=== PATIENT | female | born 1965 | race Caucasian/White ===

== ENCOUNTER → 2019-06-07 13:45 | Outpatient (BNVA) | payer OTHER, MEDICAID, SELFPAY | PROVIDERS: PCP Registered Nurse; Referring Provider Licensed Practical Nurse; Visit Provider Psychiatry & Neurology Neurology | DX: M54.9 Dorsalgia, unspecified (principal); M79.604 Pain in right leg; M79.605 Pain in left leg | CPT/HCPCS: 95886; 95909 ==

== ENCOUNTER 2021-09-25 14:02 | Outpatient (CLI) | payer OTHER, MEDICAID, SELFPAY ==
--- NOTE | 2021-09-25 14:28 | MM_ITS ---
WS: [id number] BILATERAL 3D TOMOSYNTHESIS DIGITAL SCREENING MAMMOGRAPHY WITH CAD CLINICAL INFORMATION: SCREENING. RIGHT breast soreness. COMPARISON: 018 TECHNIQUE: Bilateral CC and MLO views. FINDINGS: Scattered fibroglandular densities bilaterally. A few incidental punctate calcifications. No suspicio us focal mass, asymmetry, calcifications, or architectural distortion. No evidence of malignancy. MM/[place] [id number] IMPRESSION: BI-RADS: 2-Benign FOLLOW UP: 1 Year Follow-up Recommend return to annual screening mammography.
== END 2021-09-25 14:03 | disposition home or self-care (01) ==
PROVIDERS: PCP Registered Nurse; Visit Provider Family Medicine
DX: Z12.31 Encounter for screening mammogram for malignant neoplasm of breast (principal)
CPT/HCPCS: 77063; 77067

== ENCOUNTER 2024-02-05 10:48 | Outpatient (CLI) | payer OTHER, MEDICAID, SELFPAY ==
--- NOTE | 2024-02-05 10:54 | US_ITS ---
WS: [id number] BILATERAL 3D TOMOSYNTHESIS DIGITAL DIAGNOSTIC MAMMOGRAPHY WITH CAD CLINICAL INFORMATION: RIGHT BREAST PAIN HISTORY: RIGHT breast lump COMPARISON: 2021 TECHNIQUE: Bilateral CC, MLO, and ML views. FINDINGS: Scattered fibroglandular densities bilaterally. Few incidental punctate calcifications. Palpable yuli er RIGHT breast with normal underlying parenchymal tissue. Ultrasound of this area is pending. LEFT breast appears unchanged compared to previous ULTRASOUND BREAST RIGHT TECHNIQUE: Ultrasound right breast focused area of concern. CLINICAL INFORMATION: RIGHT BREAST PAIN FINDINGS: Ultrasound RIGHT breast area of palpable concern. Ultrasound at the 9 o'clock position demonstrates i ncidental tiny cysts measuring 3 to 4 mm, 5 cm from the nipple. Additional lobulated cyst at the 9 o 'clock position measuring 6 x 5 mm. Findings have a benign appearance. Recommend return to annual [facility] mammography. US/US breast RT complete [id number] IMPRESSION: DENSITY: There are scattered areas of fibroglandular density. BI-RADS: 2 - Benign. FOLLOW UP: 1 Year Follow-up Recommend return to annual screening mammography.
== END 2024-02-05 10:49 | disposition home or self-care (01) ==
LOC: RAD 10:49
PROVIDERS: PCP Family Medicine; Visit Provider Nurse Practitioner Family
DX: N64.4 Mastodynia (principal); R92.323 Mammographic fibroglandular density, bilateral breasts; R92.1 Mammographic calcification found on diagnostic imaging of breast
CPT/HCPCS: 76641; 77062; G0279

== ENCOUNTER → 2024-06-03 12:36 | Outpatient (BNVA) | payer OTHER, MEDICAID, SELFPAY | PROVIDERS: PCP Family Medicine; Visit Provider Orthopaedic Surgery | DX: M43.17 Spondylolisthesis, lumbosacral region (principal); M96.1 Postlaminectomy syndrome, not elsewhere classified; M54.9 Dorsalgia, unspecified; Z98.1 Arthrodesis status | CPT/HCPCS: 72072; 72110; 99204 ==

== ENCOUNTER 2024-08-19 08:00 | Outpatient (CLI) | payer OTHER, MEDICAID, SELFPAY ==
--- NOTE | 2024-08-19 08:45 | MR_ITS ---
WS: [id number] MRI LUMBAR SPINE NONCONTRAST TECHNIQUE: Sagittal T1, T2 and STIR imaging. Axial T1 and T2 imaging. CLINICAL INFORMATION: lumbar pain COMPARISON: MRI 2019 FINDINGS: Mild lumbar curve. No acute compression. Pedicle screw fixation L5-S1. Slight anterolisthesis L5 on S1 with interbody fusion. Laminectomy defects L4-L5 and L5-S1. 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 L1-L2: Mild annular bulging. Narrowing of the subarticular recess bilaterally. Mild facet arthropathy. Foramen are patent. L2-L3: Annular bulging with narrowing of the RIGHT greater than LEFT subarticular recess. Mild facet arthropathy. Mild LEFT L2-3 foraminal narrowing. L3-L4: Annular bulging L3-4 with mild central canal stenosis progressed compared to previous. Moderate facet arthropathy. Foramen are patent. L4-L5: Laminectomy defects. Annular bulging with impingement on the subarticular recess bilaterally. Mild LEFT greater than RIGHT foraminal narrowing. L5-S1: Pedicle screw fixation with interbody fusion. Grade 1 anterolisthesis. Slight encroachment on the RIGHT greater than LEFT traversing S1 nerve roots. Mild foraminal narrowing. Visualized pelvic bony structures: Normal. Paravertebral soft tissues: Normal. MR/MR lumbar spine wo con* [id number] IMPRESSION: 1. Prior postoperative changes pedicle screw fixation L5-S1 with interbody fus ion. Grade 1 anterolisthesis L5 on S1 appears minimally progressed. 2. 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 3. Mild narrowing of the thecal sac at L3-4 with mild annular bulging and narr owing of the subarticular recess progressed compared to previous. 4. Impingement on the L4-5 subarticular recess. 5. Annular bulging L2-3 with narrowing of the subarticular recess bilaterally. This appears progressed compared to previous. 6. Moderate facet arthropathy L3-L4 L4-L5.
--- NOTE | 2024-08-19 09:30 | MR_ITS ---
WS: [id number] MRI THORACIC SPINE WITHOUT CONTRAST TECHNIQUE: Sagittal T1, T2 and STIR imaging. Axial T2 imaging. Noncontrast imaging obtained. CLINICAL INFORMATION: thoracici pain COMPARISON: 2019 FINDINGS: Mild thoracic curve. Mild thoracic kyphosis. Mild disc bulging T6-T7 and T7-T8 with slight effacement of the ventral thecal sac. Small central protrusions with slight contact of the thoracic cord similar to previous. Tiny shallow central protrusion T9-T10. This is also similar to previous. No high-grade central canal narrowing. Normal CSF pulsation artifact in the dorsal canal. No acute compression fractures. No high-grade central canal stenosis. Moderate facet arthropathy lower thoracic spine. A few Schmorl's nodes in the lower thoracic and upper lumbar spine. Adrenal glands are normal. Small esophageal hiatal hernia. MR/MR thoracic spin wo con* [id number] IMPRESSION: 1. Mild thoracic curve. Mild thoracic kyphosis. No acute compression fractures . 2. No high-grade central canal narrowing. Cord signal is normal. 3. Small disc protrusions T6-T7 and T7-T8 with slight contact of the thoracic cord similar to 2019. 4. Tiny shallow protrusion at T9-10 also similar to previous.
== END 2024-08-19 08:01 | disposition home or self-care (01) ==
PROVIDERS: PCP Family Medicine; Visit Provider Orthopaedic Surgery
DX: M43.17 Spondylolisthesis, lumbosacral region (principal); M79.604 Pain in right leg; M79.605 Pain in left leg; M43.8X4 Other specified deforming dorsopathies, thoracic region; M51.24 Other intervertebral disc displacement, thoracic region; M51.34 Other intervertebral disc degeneration, thoracic region; M47.894 Other spondylosis, thoracic region; M51.44 Schmorl's nodes, thoracic region; M51.46 Schmorl's nodes, lumbar region; K44.9 Diaphragmatic hernia without obstruction or gangrene; Z98.1 Arthrodesis status; R93.7 Abnormal findings on diagnostic imaging of other parts of musculoskeletal system; G03.9 Meningitis, unspecified; M51.369 Other intervertebral disc degeneration, lumbar region without mention of lumbar back pain or lower extremity pain; M47.896 Other spondylosis, lumbar region; M43.8X6 Other specified deforming dorsopathies, lumbar region; M96.89 Other intraoperative and postprocedural complications and disorders of the musculoskeletal system; M48.07 Spinal stenosis, lumbosacral region
CPT/HCPCS: 72146; 72148

== ENCOUNTER → 2024-08-24 14:20 | Outpatient (BNVA) | payer OTHER, MEDICAID, SELFPAY | PROVIDERS: PCP Family Medicine; Visit Provider Orthopaedic Surgery | DX: Z09 Encounter for follow-up examination after completed treatment for conditions other than malignant neoplasm (principal) | CPT/HCPCS: 99214 ==

== ENCOUNTER 2024-08-26 08:50 | Outpatient (CLI) | payer OTHER, MEDICAID, SELFPAY ==
[2024-08-26 09:41] LABS: Basophils # 0.2 10^3/uL (0.0-0.1); Basophils % 1.6 %; Eosinophils # 0.3 10^3/uL (0.0-0.8); Eosinophils % 2.3 %; Hematocrit 49.7 % (36-47); Lymphocytes # 4.2 10^3/uL (0.8-4.8); Lymphocytes % 37.4 %; Mean Corpuscular HGB Conc 32.8 g/dL (30-55); Mean Corpuscular Hemoglobin 29.4 pg (27-33); Mean Corpuscular Volume 89.5 fl (85-98); Mean Platelet Volume 10.4 fL (7.4-10.4); Monocytes % 9.2 %; Neutrophils # 5.46 10^3/uL (1.8-7.7); Neutrophils % 49.1 %; Nucleated Red Blood Cells % 0 %; Platelet Count 251 10^3/cmm (157-399); Red Blood Count 5.55 10^6/uL (3.85-5.65); Red Cell Distribution Width 14.6 % (12.1-15.1); White Blood Count 11.11 10^3/uL (3.29-11.43)
[2024-08-26 09:51] LABS: Bilirubin Urine Negative (Negative); Blood Urine Negative (Negative); Glucose Urine UA Negative (Normal); Ketones Urine Negative (Negative); Leukocyte Esterase Urine Negative (Negative); Nitrate Urine Negative (Negative); Protein Urine Negative (Negative); Specific Gravity, Urine 1.025 (1.005-1.030); Urine Appearance Clear (CLEAR); Urine Color Yellow (Yellow); pH Urine 6.5 (5-7)
[2024-08-26 09:56] LABS: Add Urine Microscopic? YES; Bacteria Urine 1+ /hpf; Hyaline Casts Urine 0-4 /lpf; RBC Urine 0-2 /hpf (0-2); WBC Urine 0-5 /hpf (0-5)
[2024-08-26 10:01] LABS: Alanine Aminotransferase 22 U/L (0-33); Albumin Level 3.7 g/dL (3.5-5.2); Alkaline Phosphatase 118 U/L (35-105); Anion Gap 13.6 (5-19); Aspartate Amino Transferase 20 U/L (0-32); Blood Urea Nitrogen 13 mg/dL (6-20); Calcium 8.9 mg/dL (8.5-10.5); Carbon Dioxide 28 mmol/L (22-29); Chloride 105 mmol/L (98-107); Globulin 2.9 g/dL (1.3-4.6); Glomerular Filtration Rate 73.7 mL/min (90-130); Glucose 122 mg/dL (65-115); Osmolality Calculated 295 mOsm/kg (285-295); Potassium 4.6 mmol/L (3.5-5.1); Sodium 142 mmol/L (136-145); Total Bilirubin 0.2 mg/dL (0.15-1.2); Total Protein 6.6 g/dL (6.6-8.7)
[2024-08-26 10:06] LABS: Add Urine Culture? No
== END 2024-08-26 08:51 | disposition home or self-care (01) ==
LOC: LAB 08:53
PROVIDERS: PCP Family Medicine; Visit Provider Orthopaedic Surgery
DX: M54.9 Dorsalgia, unspecified (principal)
CPT/HCPCS: 36415; 80053; 81001; 85025

== ENCOUNTER 2024-09-15 13:02 | Inpatient (IN) | payer OTHER, MEDICAID, SELFPAY ==
[2024-09-15] VITALS (22 sets, daily range): BP systolic 79–146; BP diastolic 52–92; PULSE 68–90; RESP 10–21; TEMP 36.5–37.1; O2SAT 90–98; BMI 42.0; BMI 44.4
--- NOTE | 2024-09-15 | XR_ITS ---
WS: [email or web address] Lumbar spine, C-arm fluoroscopy views, 09/15/2024 Clinical Data: OR PICS Comparison: Lumbar spine, 06/03/2024 Findings: Dr. Dempsey performed a revision of the posterior lumbar fusion. XR/XR lumbar spine 2-3V* [id number] Impression: Revision of posterior lumbar fusion.
[2024-09-15] MEDS: sodium chloride 0.9% 1,000 ML 30 ML IV (07:28)
--- NOTE | 2024-09-15 08:21 | W.PM.OPSUD ---
Surgery/Procedure H&P Update DATE OF PROCEDURE: September 15, 2024 DATE H&P PERFORMED: 08/24/24 H&P UPDATE INFORMATION: I have reviewed H&P completed within last 30 days, I have examined patient prior to procedure and No changes to prior documentation PREOP DIAGNOSIS: Lumbar stenosis neurogenic claudication PLANNED PROCEDURE: Operation Date: 09/15/24 09:00 Proposed Procedures p Posterior Lumbar Interbody Fusion PLIF(Not Applicable) - DO teresa Osei Lumbopelvic Fixation(Not Applicable) - DO teresa Osei Sacroiliac Joint Fusion SI Joint Fusion(Bilateral) - Rajat Dempsey DO
[2024-09-15] MEDS: ceFAZolin 2,000 mg SDV 2000 MG IVP ×2 (09:16→17:12)
[2024-09-15] MEDS: lidocaine-epi 1% 20 mL INJ INJECTION (10:08)
[2024-09-15] MEDS: heparin, porcine 1,000 unit/mL INJ 10 mL 10000 UNIT IRRIGATION (10:09)
[2024-09-15] MEDS: vancomycin 1,000 MG SDV 1000 MG XX (10:09)
[2024-09-15] MEDS: VANCOMYCIN ADD-Vantage 1,000 MG VIAL 1000 MG XX (11:37)
--- NOTE | 2024-09-15 12:24 | P.OP_ITS ---
Operative Report Date of procedure: September 15, 2024 Pre-op diagnosis: Lumbar stenosis with neurogenic claudication Post-op diagnosis: same Procedure done: 1. L4/5 Interbody fusion with posterolateral fusion 2. Instrumentation L4-S1 3. Cage at L4/5 4. L4-5 laminectomy with facetectomy for purposes decompress the nerve 5. use of autograft from same incision 6. allograft 7. Bone marrow aspirate from right iliac crest 8. Use of computer navigation CT apical spine 9. Review of deep hardware from spine Surgeon: Rajat Dempsey DO Estimated blood loss (mL): 400 Procedure: 1. L4/5 Interbody fusion with posterolateral fusion 2. Instrumentation L4-S1 3. Cage at L4/5 4. L4-5 laminectomy with facetectomy for purposes decompress the nerve 5. use of autograft from same incision 6. allograft 7. Bone marrow aspirate from right iliac crest 8. Use of computer navigation CT apical spine 9. Review of deep hardware from spine Patient is brought to the operative suite. After undergoing anesthesia, the patient had neuro monitoring attached. Patient was then placed in the prone position on the Naseem table. All areas of impingement were well-padded. Patient was then prepped and draped in the normal sterile fashion. Skin incision was then made over the L L4-S1. Subperiosteal dissection was made out to the transverse processes of L4 and S1. Previous screws were identified. These caps were removed and rods removed his screws remained in place. The Foxtrot bone marrow aspirate kit was used to aspirate bone marrow aspirate. This was done by using the sharp probe to open up the bone right iliac crest. Aspiration was performed and then the blunt probe was then used to dissect down to through the bone tunnel. An aspirating well drawn back a millimeter approximately 20 cc of bone marrow aspirate was used. Admixed with the allograft and autograft bone that will be used. The extension was brought to placing the fiducial 2 pins were placed in the right iliac crest. Fiducial was attached C-arm was brought in spiral patient information from the C-arm was alone in the computer. This was later used for placing the pedicle screws. The technique for placing the pedicle screws was to use a drill followed by the gearshift probe linked to computer navigation. Followed by the ball probe to feel the superior inferior medial lateral olson of the pedicles. Then placement of the screws linked to computer navigation. Was done at each pedicle. Screws were placed at L 4 bilaterally. Next attention was brought to performing the laminectomy ofL4. This was done using the high-speed bur Kerrisons and curettes. Once the lamina was removed and then attention was brought to performing a partial facetectomy on the contralateral side. This was done again using the high-speed bur curettes and Kerrisons. The ligamentum flavum was taken down bilaterally from L4 to L5. Attention was then brought to the facet on the ipsilateral side. The facet was taken down. The L5 nerve was decompressed as it passed around the L5 pedicle. The laminectomy was done for purposes of decompressing the nerve as well as placement of the cage. The L4 nerve was identified as it traversed through the L4 foramen. The thecal sac was identified and retracted. The L4/5 disc base was identified. Using a knife the disc base was opened. And then sequential sony were placed. The first shaver was a 6 and the last shaver was a 11. Using a pituitary and down going curette the endplates were scraped and disc material was removed from the space. Once adequate decompression of the disc base was felt to be had. Osteoamp sponge was packed into the anterior aspect of the disc base. Then a size 12 cage from [place] was placed after packing osteoamp into the cage. While placing the cage the thecal sac and L5 nerve was protected. C arm was used to ensure that the cages placed in the appropriate position. Attention was then brought to attaching the rods to the screws placed in the L4 bilaterally L5 bilaterally and S1 bilaterally. Caps were torqued into position. Locking the construct in place. Wound was copiously irrigated and then attention was brought to decorticating the facets and transverse processes laterally. Bone that was taken down from the lamina was used along with osteoamp fibers and sponges were packed into the lateral gutters along the facet joints. This was done bilaterally. Wound was then closed in a layered fashion starting with the thoracolumbar fascia. 0-vicryl was used the sub cutaneous tissue was closed with 2-0 vicryl and skin with 4-0 monocryl. Glue was then used to seal the skin and a steril dressing was applied. Patient was then placed in the supine position. The endotracheal tube was removed and patient was transferred to the PACU in stable condition.
--- NOTE | 2024-09-15 13:10 | ANE.PACU2 ---
Inpatient post-anesthesia follow up: Airway intact: Yes Vital signs: Temperature 97.7 F Pulse Rate 71 Respiratory Rate 19 Blood Pressure 128/70 Pulse Oximetry 92 Oxygen Delivery Me thod Room Air Oxygen Flow Rate 8 Fraction of Inspir ed Oxygen Hydration adequate: Yes Nausea and vomiting: No Pain level: 1 Mental status: Baseline
--- NOTE | 2024-09-15 13:27 | PC.NURSE ---
1315 - accepted into room 257 with LUDIVINA Quigley at side - pt in no distress upon this nurse exiting care - BP 128/70 - pulse 71 - 02 92% Temp 97.7
[2024-09-15] MEDS: lactated ringers 1,000 ML 90 ML IV (14:06)
[2024-09-15] MEDS: BuSPIRONE 10 mg Tablet 5 MG PO ×2 (14:12→21:55)
[2024-09-15] MEDS: ketorolac 30 mg/mL INJ IVP ×2 (14:12→21:56)
[2024-09-15] MEDS: HYDROcodone-acetaminophen 10-325 mg Tablet PO ×2 (17:11→21:55)
[2024-09-15] MEDS: docusate sodium 100 mg Capsule PO (17:11)
[2024-09-15] MEDS: pantoprazole DR 40 mg Tablet PO (17:11)
[2024-09-15] MEDS: albuterol 2.5 mg/3 mL Neb INHALATION (20:37)
[2024-09-15] MEDS: budesonide 0.5 mg/2 mL Neb 0.25 MG INHALATION (20:37)
[2024-09-16] VITALS: BP 137/71; PULSE 86; RESP 18; TEMP 36.9; O2SAT 92
[2024-09-16] MEDS: ceFAZolin 2,000 mg SDV 2000 MG IVP ×2 (01:44→09:13)
[2024-09-16] MEDS: HYDROcodone-acetaminophen 10-325 mg Tablet PO (05:44)
[2024-09-16 07:47] VITALS: BP 146/82; PULSE 76; RESP 16; TEMP 36.4; O2SAT 91
[2024-09-16] MEDS: budesonide 0.5 mg/2 mL Neb 0.25 MG INHALATION (07:51)
[2024-09-16] MEDS: albuterol 2.5 mg/3 mL Neb INHALATION (07:51)
[2024-09-16 07:53] VITALS: PULSE 80; RESP 18; O2SAT 96
--- NOTE | 2024-09-16 09:04 | PC.SOCIAL ---
DME Patient has walker order. Choice sheet completed and placed in chart. Cyber access completed. Confirmation # [id number]. All information faxed to HOME @ this time and requested via webex that walker be delivered.
[2024-09-16] MEDS: docusate sodium 100 mg Capsule PO (09:12)
[2024-09-16] MEDS: BuSPIRONE 10 mg Tablet 5 MG PO (09:12)
[2024-09-16] MEDS: duloxetine 60 mg Capsule PO (09:12)
[2024-09-16] MEDS: pantoprazole DR 40 mg Tablet PO (09:12)
--- NOTE | 2024-09-16 09:48 | P.DS_ITS ---
Discharge Providers Date of Admission: 09/16/24 01:13 Date of Discharge: September 16, 2024 Attending Provider at Admission: Rajat Dempsey DO Attending Provider at Discharge: Rajat Dempsey DO Primary Care Provider: Maxine Robison DO Reason for Visit Reason for Visit: M34.17 Physical Exam Narrative: Patient is doing well up with physical therapy pain is controlled. Will discharge today. Urinary Catheter Management: Rollins: Cath Placed During This Visit: yes Reason for Continuing Indwelling Catheter: Perioperative Use in Selected Surgeries Urinary Catheter Date of Insertion: 09/15/24 Urinary Catheter Time of Insertion: 09:30 Discharge Data Studies Completed and Pending Pending at discharge Category Date Time Status C-arm Fluoroscopy [id number] Routine Exams 09/15/24 06:53 Taken Laboratory Results Blood Type A Positive 09/15/24 07:20 Rho(D) Type Rh positive 09/15/24 07:20 Antibody Screen Negative 09/15/24 07:20 Vitals Last Vital Signs Temp 97.5 F L 09/16/24 07:47 Pulse 80 09/16/24 07:53 Resp 18 09/16/24 07:53 BP 146/82 09/16/24 07:47 Pulse Ox 96 09/16/24 07:53 O2 Del Method Room Air 09/16/24 07:53 O2 Flow Rate 2 09/15/24 20:37 Discharge Plan Discharge Patient Disposition: Home Condition: Stable Prescriptions: New hydrocodone-acetaminophen 10-325 mg tablet 1 tab PO Q4H PRN (Reason: pain) 7 Days Qty: 42 0RF Continued albuterol sulfate [ProAir HFA] 90 mcg/actuation HFA aerosol inhaler 2 puff INHALATION Q6H PRN (Reason: Allergy Symptoms) buspirone 5 mg tablet 5 mg PO TID albuterol sulfate 2.5 mg /3 mL (0.083 %) solution for nebulization 2.5 mg inhalation Q4H pantoprazole 40 mg tablet,delayed release (DR/EC) 40 mg PO BID budesonide 0.5 mg/2 mL suspension for nebulization 0.25 mg inhalation BID duloxetine 60 mg capsule,delayed release(DR/EC) 60 mg PO DAILY Discontinued hydrocodone-acetaminophen [[place]] 10-325 mg tablet 1 tab PO Q8H Discharge Orders: Discharge Order (Routine); Ordered 09/16/24 Ordered By: Rajat Dempsey Other Ambulatory Orders: DME: Walker (Order) Location: None Selected Ordered By: Rajat Dempsey Discharge Diet: Advance as tolerated Discharge Activity: Limit activity as instructed Patient Instructions: Acute Wound Care (DC), Opioid Safety, Post Anesthesia Care Activity Restrictions/Additional Instructions: Thank you for [facility] for your care! The following is a list of instructions, from your provider, to follow upon your discharge to ensure you have the optimal recovery from your recent injury orsurgery. Follow-up care is a khan part of your treatment and safety. Be sure to make and go to all appointments, and call your doctor if you are having problems. If you do not already have a follow-up appointment made, call Dr. Dempsey office in the next 1-3 days to make follow up appointment for 1 weeks at [phone]. It is also a good idea to know your test results and keep a list of the medicines you take. Medications will be prescribed for you at your provider's discretion. These medications are to be used as instructed; if they are taken more often that prescribed they will not be refilled early and in most cases will not be refilled at all. > When a refill is needed,you should contact navid tello 2-3 business days before your prescription runs out. Medications will NOT be refilled by protection specialist providers after hours! > Many pain medications contain Tylenol (Acetaminophen). Do not consume more than 4,000 mg of Tylenol per day in total with any combination ofmedica tions. > Pain medications can cause constipation. Please use an over the counter stool softener as directed, while taking pain medications. Consulty our local pharmacist with questions or recommendations on stool softeners. If constipation persists, contact our office or your primary care provider. > While under our care,you are not to receive pain medications or other controlled substances from any other provider unless our office is notified and approves. Any attempts to do so will result in refusal to prescribe any further pain medications and possible dismissal from our practice. ? ? Walking is essential for the healing process after surgery. We would like you to slowly advance your walking. This should be done on relatively flat clear ground (inside or out) or can be done on a treadmill. Remember this goal does not have to happen all at once, slowly increase your distance and duration. This can be broken into more more than one walk per day a s tolerated. Patients who walk as directed after surgery rarely require Physical Therapy. In the unlikely event this issue arises your provider will direct hospital staff to make the appropriate arrangements. ? No lifting over 5 pounds {a gallon of milk) or bending/twisting until further notice. Each of these activities places an unnecessary amount of stress onto the body and can impede the delicate healing process. > Instead of bending at the waist, keep your back straight and bend at the knees. > Instead of twisting your torso, keep your back straight and turn your entire body with your feet. ? You may sleep in any position which makes you comfortable. Many patients find comfort sleeping in a reclining chair. It is not abnormal to have difficulty sleeping for the first several weeks following your surgery. We recommend trying Benadry! or Tylenol PM as directed to help with your sleeping difficulties. Both medications are over the counter and available wit houtprescription. ? NO SMOKING!!! Smoking dramatically increases the probability of developing postoperative wound infections. ? Common complaints after lumbar and/or thoracic spine surgery include, but are not limited to: numbness and/or tingling in the legs, pain around the incision and surrounding tissues, muscle spasms, or stiffness of the middle to low back. Contact our office if these symptoms persist or if an acute change occurs. ? No driving for the first 3-5days, and not while taking narcotics [] until seen at your follow-up appointment and cleared. There are no restrictions for riding on short trips, however if you take a longer trip, arrangements should be made to make regular stops to get out of the vehicle and stretch . ? Swelling is an unfortunate event that will take place with any surgery and is the primary source of your postoperative discomfort. While walking and regular approved activities helps control inflammation, there are additional steps you can take to minimizeswelling. > Place ice over the surgical site and surrounding tissue for twenty minutes, followed by applying a low/medium heat (heating pad) for an additional twenty minutes every 1-2 hours as needed for painrelief. > You may use of over the counter anti-inflammatory medications (Ibuprofen, Motrin, Aleve, Advil, etc) as directed on the package label. These types of medicines wm significantly reduce the amount of discomfort you experience after surgery from swelling. It should be noted that if you have and allergy to any of these medications, or a history of ulcers or kidney disease you should consult you primary care provider prior to starting these medications. Discharge Attestations Time Spent in Discharge Care*: less than 30 min Quality Metrics Clinical Quality Measures [ No reported AMI, CVA or VTE this stay] Coding Level of Care Code Acute Code for g Raimundo
--- NOTE | 2024-09-16 10:15 | PC.NURSE ---
Patient's Hemovac removed at this time. Patient tolerated well.
[2024-09-16 11:18] VITALS: BP 138/70; PULSE 80; RESP 16; TEMP 36.9; O2SAT 96
--- NOTE | 2024-09-16 11:18 | PC.NURSE ---
Patient IV's removed x 2. Patient tolerated well. Patient is A&Ox3. Respirations even and non-labored on room air. Patient wheel chaired to private car.
== END 2024-09-16 11:18 | disposition home or self-care (01) | DRG 428 ==
LOC: MEDSURG 13:03
PROVIDERS: Admitting Provider Orthopaedic Surgery; PCP Family Medicine; Visit Provider Orthopaedic Surgery
PROC: 0SG00AJ Fusion of Lumbar Vertebral Joint with Interbody Fusion Device, Posterior Approach, Anterior Column, Open Approach (ICD-10-PCS; CPT 22612; principal; 2024-09-15 09:00)
PROC: 0SG00AJ Fusion of Lumbar Vertebral Joint with Interbody Fusion Device, Posterior Approach, Anterior Column, Open Approach (ICD-10-PCS; 2024-09-15 09:00)
PROC: 0SG00AJ Fusion of Lumbar Vertebral Joint with Interbody Fusion Device, Posterior Approach, Anterior Column, Open Approach (ICD-10-PCS; CPT 27280; 2024-09-15 09:00)
DX: M48.062 Spinal stenosis, lumbar region with neurogenic claudication (principal)
CPT/HCPCS: 36415; 51702; 72100; 76000; 86850; 86900; 94640; 97161; 97530; C1713; G0378; J0330; J0690; J1100; J1171; J1644; J1885; J2250; J2405; J2704; J2710; J3010; J3370; J3490; J7030; J7120; J7613; J7626; J9999; P9045

== ENCOUNTER → 2024-09-30 07:57 | Outpatient (BNVA) | payer OTHER, MEDICAID, SELFPAY | PROVIDERS: PCP Family Medicine; Visit Provider Orthopaedic Surgery | DX: Z98.1 Arthrodesis status (principal) | CPT/HCPCS: 99024 ==

== ENCOUNTER → 2024-10-28 07:48 | Outpatient (BNVA) | payer OTHER, MEDICAID, SELFPAY | PROVIDERS: PCP Family Medicine; Visit Provider Orthopaedic Surgery | DX: Z98.1 Arthrodesis status (principal) | CPT/HCPCS: 72100; 99024 ==

== ENCOUNTER → 2024-12-09 07:44 | Outpatient (BNVA) | payer OTHER, MEDICAID, SELFPAY | PROVIDERS: PCP Family Medicine; Visit Provider Orthopaedic Surgery | DX: Z98.890 Other specified postprocedural states (principal); Z98.1 Arthrodesis status | CPT/HCPCS: 72100; 99024 ==

== ENCOUNTER 2024-12-20 06:30 | Outpatient (RCR) | payer OTHER, MEDICAID, SELFPAY | END 2025-01-18 23:59 | disposition home or self-care (01) | LOC: WPT 06:30 | PROVIDERS: PCP Family Medicine; Visit Provider Orthopaedic Surgery | DX: Z98.1 Arthrodesis status (principal) | CPT/HCPCS: 97110; 97112; 97161; 97530 ==

== ENCOUNTER 2025-02-08 07:51 | Outpatient (RCR) | payer OTHER, MEDICAID, SELFPAY | END 2025-02-09 14:00 | disposition home or self-care (01) | LOC: WPT 07:51 | PROVIDERS: PCP Family Medicine; Visit Provider Orthopaedic Surgery | DX: Z98.1 Arthrodesis status (principal) | CPT/HCPCS: 97110; 97112; 97530 ==

== ENCOUNTER → 2025-03-10 07:47 | Outpatient (BNVA) | payer OTHER, MEDICAID, SELFPAY | PROVIDERS: PCP Family Medicine; Visit Provider Orthopaedic Surgery | DX: Z47.89 Encounter for other orthopedic aftercare (principal); Z98.1 Arthrodesis status | CPT/HCPCS: 72100; 99213 ==